=== PATIENT | female | born 1990 | race Caucasian/White ===

== ENCOUNTER 2024-04-19 02:34 | Inpatient (IN) ==
[2024-04-19] MEDS: LACTATED RINGER'S 1,000 ML IV SCH ×3 (03:25→20:17)
--- NOTE | 2024-04-19 03:32 | History & Physical Report ---
Date of Service April 19, 2024 Assessment & Plan (1) Labor presentation, breech: Plan: IUP in labor at 35 3/7 weeks in labor with breech presentation patient aware of need for emergent . procedure and risks reviewed with patient and all questions answered History of Present Illness Primary Care Provider: Deepak Antonio MD patient is a 34 yo female who presents at 35 3/7 weeks with regular contractions and breech presentation. GBS status unknown. also complicated by cholestatsis of and unknown GDM status as she did not do definitive 2hr Glucola testin. blood type O negative. Allergies Allergy/AdvReac Type Severity Reaction Status Date / Time No Known Drug Allergies Allergy Verified 04/16/24 10:54 Home Medications Medication Instructions Recorded Confirmed Type blood sugar diagnostic (OneTouch #150 ea 04/15/24 04/16/24 Rx Verio test strips) blood-glucose meter (OneTouch #1 ea 04/15/24 04/16/24 Rx Verio Reflect Meter) lancets 33 gauge (OneTouch Delica #150 ea 04/15/24 04/16/24 Rx Plus Lancet) ferrous sulfate 325 mg (65 mg 325 mg PO DAILY 04/19/24 04/19/24 History iron) tablet (iron) vit no.95-ferrous 1 tab PO 04/19/24 History fumarate 28 mg-folic acid 800 mcg tablet () Patient History Medical History (Updated 04/19/24 @ 03:29 by Bernadine Hudson MD, FACOG) History of pre-eclampsia Varicella vaccination Hypermobility syndrome Allergic rhinitis Hyponatremia Environmental and seasonal allergies ADHD Familial hyperlipidemia Surgical History History of oral surgery wisdom teeth Family History (Updated 12/03/23 @ 09:56 by Cyndi Mixon) Mother Melanoma Hypothyroidism Father Deep vein thrombosis Hyperthyroidism Family/Other Breast cancer 2nd cousin Denies family history of Ovarian cancer Colorectal cancer Social History (Updated 12/03/23 @ 09:58 by Cyndi Mixon) Smoking Status: Former smoker Tobacco Type: E-cigarettes / Vaping Second Hand Exposure: No; Do You Dip or Chew Tobacco: No; Hx Alcohol Use: No Hx Substance Use: No Preferred Language: Setswana Visual Impairment: No Limitations Hearing Ability: Normal Deaf/Hard Of Hearing Specialist Required: No Beliefs That Will Affect Care: None marital status: Single marital status details: Zane Flores (29) [phone] Current Living Situation: Family and Significant Other Current Living Situation Comment: lives with Zane, 2 children, dog, cat-kids changing litter current occupational status: employed current occupation: [employer] Other Information That Helps Us Care for You: No Feels Safe at Home: Yes Safety Concerns: Feels Safe At This Time Diet: regular caffeine: Yes Dental Care, Regularly: Yes Physical Activity Frequency: 5-6 Times per Week Seatbelt Use: always Sunscreen Use: Yes (some) Assistive Devices: Contacts Review of Systems All systems reviewed & are unremarkable except as noted in HPI & below Physical Exam Constitutional: WD/WN, vitals as above Psychiatric: A+Ox3, euthymic affect Genitourinary: OB Exam Abdomen: + breech (by exam and ultrasound) Manual OB Exam: + cervical dilation 3 cm and + cervical effacement OB Exam Monitor Tracing: + external FHT monitor used, + normal FHT variability and + variable decelerations recurrent Results & Data Vital Signs (Past 12 Hours) Vital Signs Temp Pulse Resp BP 04/19/24 02:55 98.2 F 90 18 116/71 04/19/24 02:53 90 116/71 Coding Level of Care Code 00861 INT INP/OBS CARE 1/40MIN Diagnoses Breech presentation, single or unspecified fetus O32.1XX0 Fetus number: single or unspecified fetus (1) Labor presentation, breech Fetus number: single or unspecified fetus Qualified Code(s): O32.1XX0 - Maternal care for breech presentation, not applicable or unspecified
[2024-04-19 03:48] LABS: Hematocrit (blood only) 29.5 % (37.0-47.0); Mean Corpuscular Hemoglobin 29.1 pg (25.0-34.0); Mean Corpuscular Hgb Conc 33.9 g/dL (32.0-36.0); Mean Corpuscular Volume 85.8 fL (80.0-100.0); Mean Platelet Volume 10.4 fL (9.4-12.4); Platelet Count 268 K/uL (130-400); RDW Coefficient of Variation 13.7 % (11.5-14.5); RDW Standard Deviation 42.5 fL (36.4-46.3); Red Blood Count 3.44 M/uL (4.20-5.40); White Blood Count 24.19 K/ul (4.8-10.8)
[2024-04-19] MEDS: ACETAMINOPHEN 500 MG TAB PO SCH (03:48)
[2024-04-19] MEDS: CITRIC ACID/SODIUM CITRATE 15 ML UDC ONE (03:49)
--- NOTE | 2024-04-19 04:02 | Anesthesiology Consultation ---
Date of Service April 19, 2024 Assessment & Plan Chart Review Chart Review: Acceptable Risk for Surgery Consults Requested none History Surgery Operation Date: 04/19/24 03:30 Proposed Procedures p Section in LD - Bernadine Hudson MD, FACOG Height/Weight Height: 5 ft 4 in Weight: 95.708 kg Allergies Allergy/AdvReac Type Severity Reaction Status Date / Time No Known Drug Allergies Allergy Verified 04/16/24 10:54 Medications Home Medications Medication Instructions Recorded Confirmed Last Taken blood sugar diagnostic (OneTouch #150 ea 04/15/24 04/16/24 Unknown Verio test strips) blood-glucose meter (OneTouch #1 ea 04/15/24 04/16/24 Unknown Verio Reflect Meter) lancets 33 gauge (OneTouch Delica #150 ea 04/15/24 04/16/24 Unknown Plus Lancet) ferrous sulfate 325 mg (65 mg 325 mg PO DAILY 04/19/24 04/19/24 04/18/24 iron) tablet (iron) vit no.95-ferrous 1 tab PO 04/19/24 04/18/24 fumarate 28 mg-folic acid 800 mcg tablet () Active Medications Generic Name Dose Route Start Last Admin Trade Name Freq PRN Reason Stop Dose Admin Acetaminophen 1,000 mg 04/19/24 06:00 04/19/24 03:48 Acetaminophen 500 Mg Tab PO 04/19/24 18:00 1,000 mg PREOP JASON Administration Lactated Ringer's 1,000 mls @ 999 mls/hr 04/19/24 03:30 04/19/24 03:25 Lr IV 04/19/24 04:30 999 mls/hr .Q1H1M JASON Administration NPO Date Last Intake of Fluids: 04/19/24 Date Last Intake of Solids: 04/18/24 Past Medical History Medical History (Updated 04/19/24 @ 03:29 by Bernadine Hudson MD, FACOG) History of pre-eclampsia Varicella vaccination Hypermobility syndrome Allergic rhinitis Hyponatremia Environmental and seasonal allergies ADHD Familial hyperlipidemia Past Family History Family History (Updated 12/03/23 @ 09:56 by Cyndi Mixon) Mother Melanoma Hypothyroidism Father Deep vein thrombosis Hyperthyroidism Family/Other Breast cancer 2nd cousin Denies family history of Ovarian cancer Colorectal cancer Past Surgical History Surgical History History of oral surgery wisdom teeth Social History Smoking Status: Former smoker Do You Dip or Chew Tobacco: No Hx Alcohol Use: No Hx Substance Use: No Physical Exam Vital Signs Last Vital Signs Temp 36.8 C 04/19/24 02:55 Pulse 90 04/19/24 02:55 Resp 18 04/19/24 02:55 BP 116/71 04/19/24 02:55 Testing Laboratory Results 04/19/24 03:30
[2024-04-19] MEDS: ceFAZolin 3000MG 3,000 MG/72.5 ML BAG IV SCH (04:06)
[2024-04-19] MEDS ORDERED: MoRPHine SULFATE PF 1 MG/ML 10 ML AMP/VIAL ONE (04:13)
[2024-04-19] MEDS ORDERED: OXYTOCIN 10 UNITS/ML VIAL ONE (04:42)
[2024-04-19] MEDS ORDERED: PHENYLEPHRINE HCL 25 MG/250 ML NSS IV ONE (04:42)
[2024-04-19] MEDS ORDERED: fentaNYL citrate PF 100 MCG/2 ML VIAL ONE ×3 (04:48→05:29)
[2024-04-19] MEDS ORDERED: MoRPHine SULFATE 2 MG/ML CARP IV PRN (05:05)
[2024-04-19] MEDS ORDERED: KETOROLAC 30 MG/ML VIAL IV PRN (05:05)
[2024-04-19] MEDS ORDERED: oxyCODONE HCL IR 5 MG TAB (IMMEDIATE RELEASE) PO PRN (05:05)
[2024-04-19] MEDS ORDERED: NALOXONE HCL 0.4 MG/1 ML VIAL/CARP IV PRN (05:05)
[2024-04-19] MEDS: CITRIC ACID/SODIUM CITRATE 15 ML UDC PO SCH (05:05)
[2024-04-19] MEDS ORDERED: diphenhydrAMINE 50 MG/ML VIAL IV PRN ×2 (05:05→23:05)
[2024-04-19] MEDS ORDERED: NALBUPHINE HCL INJ 10 MG/ML AMP IV PRN (05:05)
[2024-04-19] MEDS ORDERED: ONDANSETRON INJ 2 MG/ML 2 ML VIAL IV PRN ×2 (05:05→23:05)
[2024-04-19] MEDS: ACETAMINOPHEN 500 MG TAB ONE (05:05)
[2024-04-19] MEDS ORDERED: MEPERIDINE HCL 25 MG/ML CARP/VIAL IV PRN (05:05)
[2024-04-19] MEDS ORDERED: ACETAMINOPHEN 1,000 MG/100 ML VIAL IV PRN (05:05)
[2024-04-19] MEDS ORDERED: NALOXONE HCL 1 MG in SODIUM CHLORIDE 0.9% 1,000 ML IV PRN (05:05)
[2024-04-19] MEDS ORDERED: ePHEDrine sulfate 50 MG/ML AMP IV PRN (05:05)
[2024-04-19] MEDS ORDERED: HYDROmorphone INJ 0.5 MG/0.5 ML SYR IV PRN ×2 (05:05→23:05)
[2024-04-19] MEDS ORDERED: PROMETHAZINE 6.25 MG/50.25 ML BAG IV PRN (05:05)
[2024-04-19] MEDS ORDERED: NO NARCOTICS OR SEDATIVES SCH (05:15)
[2024-04-19] MEDS ORDERED: DC INTRASPINAL MORPHINE SCH (05:15)
--- NOTE | 2024-04-19 05:27 | Post Operative Brief Note ---
Immediate Post Op Note Date of Surgery April 19, 2024 Pre & Post Diagnosis Operation Date: 04/19/24 03:30 Pre-Op Diagnosis: Labor and Breech Post-Op Diagnosis: Same I identified the patient and participated in the time-out.: Yes Procedure Operation Date: 04/19/24 03:30 Actual Procedures p Section in for [facility] at 0441(Bilateral) - Bernadine Hudson MD, FACOG Surgeon Bernadine Hudson MD, FACOG Manager Of Supply Chain Lorrie Barry RN Quantitative Blood Loss (QBL) 1069 Findings Consistent with Post-Op Diagnosis incomplete breech presentation normal uterus, tubes and ovaries Specimens Specimen Description: A. Placenta - hold B. Cord Blood Drains Martins Catheter (placed in OR. Draining clear yellow urine. To be monitored by anesthesia during procedure ) Anesthesia Type Spinal Complications none Disposition Accompanied Patient To Recovery: Yes
[2024-04-19] MEDS ORDERED: SENNA 8.6 MG TAB PO PRN (05:30)
[2024-04-19] MEDS ORDERED: BENZOCAINE 20% SPRY 85 APPLN/85 GM CAN EXT PRN (05:30)
[2024-04-19] MEDS ORDERED: CALCIUM CARBONATE 500 MG CHEWABLE TAB PO PRN (05:30)
[2024-04-19] MEDS ORDERED: HYDROCORTISONE ACETATE 25 MG SUPP PR PRN (05:30)
--- NOTE | 2024-04-19 05:52 | Operative Report ---
Post Operative Report Pre & Post Diagnosis Operation Date: 04/19/24 03:30 Pre-Op Diagnosis: Labor and Breech at 35 3/7 weeks Post-Op Diagnosis: Same I identified the patient and participated in the time-out.: Yes Procedure Operation Date: 04/19/24 03:30 Actual Procedures low transverse Section in for [facility] at 0441(Bilateral) - Bernadine Issa MD, FACOG Surgeon Bernadine Hudson MD, FACOG Title Processor Lorrie Barry RN Quantitative Blood Loss (QBL) 1069 Findings Consistent with Post-Op Diagnosis Uterus is gravid and consistent with a near term in size. Bilateral ovaries and fallopian tubes were grossly normal. was in the incomplete breech presentation. Specimens Placenta to hold Drains Martins catheter to straight drainage. Clear urine at the end of the case. Anesthesia Type Spinal Complications none Disposition Accompanied Patient To Recovery: Yes Indications Patient is a 3 para 2-0-0-2 female EDC of 05/21/2025 who presents at 35- 3/7 weeks in active labor with breech presentation. Description of Procedure After the patient received adequate subarachnoid block she was prepped and draped in usual sterile fashion. Low transverse skin incision made with scalpel and carried the fascia with same scalpel. Fascial incision was then extended with Duque scissors. The edges were then grasped with Rox clamps and the underlying rectus muscle bluntly sharply docked dissected off of the overlying fascia. The rectus muscle were then bluntly divided along the midline and the underlying peritoneum also entered bluntly. Bladder was taken down off the anterior surface of the uterus and placed behind the bladder blade. The uterus was entered with a scalpel and the incision extended transversely by stretching the incision incision both in a cephalad and caudad direction. The female was delivered from the incomplete breech presentation with the assistance of elevation vaginally. Then with moderate fundal pressure, the shoulders were delivered followed by the head. She was vigorous crying and moving all 4 limbs. Cord was clamped and cut and the infant was handed off to Dr. Willis and the nursery crew in attendance. After cord blood was obtained, the placenta was manually removed. Uterus was then exteriorized and covered with a clean lap sponge. The uterine cavity is then explored and was found to be free of any placental tissue or membranes. There is a slight extension into the lower uterine segment on the left. After identifying and grasping the lower edge of the uterine incision with T clamps, the uterus was closed in 2 layers in a running locking imbricating fashion. Hemostasis was noted to be excellent. The posterior cul-de-sac was suctioned for a small amount of blood. Uterine incision was examined once more and continue to have excellent hemostasis. It was then gently placed back inside the abdominal cavity. The gutters were cleared of some clot and fluid. Single bleeding site on the upper edge of the uterine incision on the midline was cauterized with the Bovie. This point hemostasis was noted to be excellent. The rectus muscles were then brought together on the midline with individual stitches of 0 Monocryl. After irrigating the subcutaneous layer, the skin edges were reapproximated in a subcuticular fashion with 4-0 Vicryl. Patient tolerated the procedure well was stable back in labor delivery for recovery. I attest to the content of the Intraoperative Record and any orders documented therein. Any exceptions are noted below. OB Procedure Charges 85385
[2024-04-19] MEDS ORDERED: AZITHROMYCIN 500 MG/255 ML BAG IV SCH (06:00)
[2024-04-19] MEDS: OXYTOCIN 20 UNITS/LR 1,002 ML IV SCH (06:09)
[2024-04-19] MEDS: KETOROLAC 30 MG/ML VIAL IV SCH (06:11)
--- NOTE | 2024-04-19 06:34 | Anesthesiology Progress Note ---
Date of Service April 19, 2024 Anesthesia Post Procedure Vital Signs Vital Signs: Temp Pulse Resp BP Pulse Ox 04/19/24 06:32 75 92 04/19/24 06:30 79 105/65 04/19/24 06:29 82 98 04/19/24 06:25 18 04/19/24 06:25 77 18 107/70 04/19/24 06:24 82 98 04/19/24 06:19 77 107/70 97 04/19/24 06:16 79 103/66 04/19/24 06:15 82 18 93/49 L 04/19/24 06:14 78 97 04/19/24 06:10 77 116/59 L 04/19/24 06:09 78 97 04/19/24 06:05 86 18 112/56 L 04/19/24 06:04 82 96 04/19/24 06:00 80 104/61 04/19/24 05:59 83 97 04/19/24 05:55 80 18 111/59 L 04/19/24 05:54 82 97 04/19/24 05:50 89 126/60 04/19/24 05:49 94 H 98 04/19/24 05:45 90 18 125/58 L 04/19/24 05:44 97 H 98 04/19/24 05:43 87 119/54 L 04/19/24 05:39 96 H 99 04/19/24 05:36 84 93 04/19/24 05:34 36.6 C 86 18 116/57 L 94 04/19/24 02:55 36.8 C 90 18 116/71 04/19/24 02:53 90 116/71 Transfer of Care Handoff Completed per policy Notes Mental Status: alert / awake / arousable and participated in evaluation Nausea / Vomiting: adequately controlled Pain: adequately controlled Airway Patency, RR, SpO2: stable & adequate BP & HR: stable & adequate Hydration State: stable & adequate Neuraxial Anesthesia: was administered and sensory block is resolving Anesthetic Complications: no major complications apparent and Pt Satisfied with anesthetic care
[2024-04-19] MEDS: SIMETHICONE 80 MG CHEW PO SCH (07:53)
[2024-04-19] MEDS: DOCUSATE SODIUM 100 MG CAP PO SCH (07:55)
[2024-04-19] MEDS: FERROUS SULFATE 325 MG TAB PO SCH (07:55)
[2024-04-19] MEDS: PRENATAL VITAMIN 1 TAB PO SCH (07:55)
[2024-04-19] MEDS: ACETAMINOPHEN 325 MG TAB PO SCH (10:19)
[2024-04-19] MEDS: DIPHTHER/TETAN/PERTUS Vaccine (Tdap, Adol/Adult) 0.5mL IM ONE (19:28)
[2024-04-19] MEDS: MoRPHine SULFATE PF 1 MG/ML 10 ML AMP/VIAL INT SPINAL ONE (19:28)
[2024-04-19] MEDS: SODIUM CHLORIDE 0.9% 1,000 ML IV SCH (19:29)
[2024-04-19] MEDS: NALOXONE HCL 0.08 MG in SYRINGE 1.8 ML IV PRN (20:51)
[2024-04-19] MEDS ORDERED: diphenhydrAMINE Capsule 25 MG CAP PO PRN (23:05)
[2024-04-19] MEDS ORDERED: PROMETHAZINE 12.5 MG/50.5 ML BAG IV PRN (23:05)
[2024-04-20] MEDS ORDERED: KETOROLAC 30 MG/ML VIAL IV PRN (06:00)
[2024-04-20] MEDS: IBUPROFEN 600 MG TAB PO SCH (06:19)
--- NOTE | 2024-04-20 07:02 | Obstetrical Progress Note ---
Date of Service April 20, 2024 Assessment & Plan (1) state: Plan: 34yo ppd 1 s/d emergent for breech presentation Feeling well today, VSS with BP slightly low Continue care Encourage ambulation and breast/bottle feeds as tolerated D/c in the next few days Followup with Dr. Hudson in 6wks Admission and Anticipated Discharge Date Admission Date: April 19, 2024 Supervising Physician Co-Signing Physician Notes Resident Physician Supervision Note: I interviewed and examined the patient. Discussed with Dr. Gurrola and agree with findings and plan as documented in the note. Any exceptions or clarifications are listed here: POD1 s/p pLTCS, doing well. VSS, exam benign, incision c/d/i. Hgb 7.2 noted, asymptomatic so will use iron, pt aware to let us know if symptomatic as transfusion can be discussed Documented By: Patience Daniel MD Subjective 34yo ppd 1 s/p emergent for breech presentation: Ambulation: ambulating normally Voiding: urinating, no BM yet Passing Gas: no Diet Tolerance: regular Lochia: Small Feeding Type: breast and bottle, no concerns at this time doing well this morning- having soreness but otherwise denies any symptoms of lightheadedness, dizziness, palpitations Physical Exam Physical Exam: Constitutional: WD/WN, vitals as above Psychiatric: A&Ox3, euthymic GI/abd: low-transverse incision scar healing well with mild surrounding ecchymosis, no erythema or swelling, no significant tenderness to palpation - +BS, fundus firm 1fw+ umbilicus Ext: no LE edema, calves nontender to palpation, wiggles toes Results & Data Vital Signs (Past 12 Hours) Vital Signs Temp Pulse Resp BP Pulse Ox O2 Del Method 04/20/24 03:45 36.6 C 82 16 96/59 L 97 Room Air 04/19/24 21:00 18 98 04/19/24 19:40 18 99 04/19/24 19:40 36.5 C 82 18 107/68 99 Room Air Resident Activity Tracking Resident Involvement: Resident Care Provided Care Provided: OB Delivery
[2024-04-20 07:35] LABS: Hematocrit (blood only) 20.9 % (37.0-47.0); Hemoglobin 7.2 g/dl (12.0-16.0); Mean Corpuscular Hemoglobin 29.5 pg (25.0-34.0); Mean Corpuscular Hgb Conc 34.4 g/dL (32.0-36.0); Mean Corpuscular Volume 85.7 fL (80.0-100.0); Mean Platelet Volume 10.5 fL (9.4-12.4); Platelet Count 283 K/uL (130-400); RDW Coefficient of Variation 13.7 % (11.5-14.5); RDW Standard Deviation 42.8 fL (36.4-46.3); Red Blood Count 2.44 M/uL (4.20-5.40); White Blood Count 22.75 K/ul (4.8-10.8)
[2024-04-20 07:48] LABS: Basophils # (auto) 0.05 K/uL (0.00-0.20); Basophils % (auto) 0.2 %; Eosinophils # (auto) 0.21 K/uL (0.00-0.50); Eosinophils % (auto) 0.9 %; Immature Granulocytes # (auto) 0.21 K/uL (0.01-0.20); Immature Granulocytes % (auto) 0.9 %; Lymphocytes # (auto) 1.74 K/uL (1.20-3.40); Lymphocytes % (auto) 7.6 %; Monocytes # (auto) 0.81 K/uL (0.11-0.59); Monocytes % (auto) 3.6 %; Neutrophils # (auto) 19.73 K/uL (1.40-6.50); Neutrophils % (auto) 86.8 %
[2024-04-20] MEDS: MAGNESIUM HYDROXIDE SUSP 30 ML UDC PO PRN (08:46)
[2024-04-20] MEDS: oxyCODONE HCL IR 5 MG TAB (IMMEDIATE RELEASE) PO PRN (18:34)
[2024-04-20] MEDS: bisacodyL 5 MG TABEC PO SCH (21:03)
[2024-04-21 00:53] VITALS: O2SAT 97
[2024-04-21] MEDS ORDERED: bisacodyL 10 MG SUPP PR PRN (05:30)
[2024-04-21] MEDS: IBUPROFEN 600 MG TAB PO PRN (06:10)
[2024-04-21 06:40] LABS: Hematocrit (blood only) 21.6 % (37.0-47.0); Hemoglobin 7.1 g/dl (12.0-16.0)
--- NOTE | 2024-04-21 07:19 | Obstetrical Progress Note ---
Date of Service April 21, 2024 Assessment & Plan (1) state: All questions were answered incision was inspected and found to be clean dry and intact extremity exam was negative for tenderness patient has no significant depressive symptoms cont current care likely tomorrow dc Subjective Ambulation: ambulating normally Voiding: no voiding problems Passing Gas:: Yes Diet Tolerance:: regular diet Lochia:: Small Feeding Type:: bottle feeding Physical Exam Constitutional WD/WN, vitals as above well developed and well nourished Respiratory normal respiratory effort, lungs clear to auscultation normal respiratory effort Cardiovascular RRR, no murmur, no edema Gastrointestinal (Abdomen) normal bowel sounds, soft, nontender, no hepatosplenomegaly Results & Data Vital Signs (Past 12 Hours) Vital Signs Temp Pulse Resp BP Pulse Ox O2 Del Method 04/20/24 23:10 98.2 F 79 16 102/71 97 Room Air 04/20/24 21:00 98.2 F 74 18 113/71 98 Room Air
[2024-04-21 08:34] VITALS: RESP 18
[2024-04-21 11:25] VITALS: BP 130/81; PULSE 91; TEMP 97.9
[2024-04-21] MEDS: ACETAMINOPHEN 325 MG TAB PO PRN (12:04)
--- NOTE | 2024-04-22 16:50 | Discharge Summary ---
Date of Service April 22, 2024 Admission HPI Per Admitting Provider patient is a 34 yo female who presents at 35 3/7 weeks with regular contractions and breech presentation. GBS status unknown. also complicated by cholestatsis of and unknown GDM status as she did not do definitive 2hr Glucola testin. blood type O negative. Admission Exam (Per Admitting) Constitutional WD/WN, vitals as above Psychiatric A+Ox3, euthymic affect Genitourinary OB Exam Abdomen: + breech (by exam and ultrasound) Manual OB Exam: + cervical dilation + 3 cm and + cervical effacement OB Exam Monitor Tracing: + external FHT monitor used, + normal FHT variability and + variable decelerations + recurrent Discharge Data Consultations 04/19/24 03:21 Consult Anesthesiology Stat Procedures Performed Operation Date: 04/19/24 03:30 Actual Procedures p Section in LD for [facility] at 0441(Bilateral) - Bernadine Hudson MD, [facility] Hospital Course (1) state: All questions were answered incision was inspected and found to be clean dry and intact extremity exam was negative for tenderness patient has no significant depressive symptoms cont current care likely tomorrow dc Discharge Plan Discharge Items Patient Disposition: Home - Self-Care Reason For Visit: LABOR CHECK Discharge Diagnosis: cs Activity: Per Instructions section Non-emergency contact: Ship'S Engineer Call non-emergency contact if: your pain is not controlled Follow-up/Referrals: Deepak Antonio MD [Primary Care Provider] - Diet: Regular OB Addtl Attending Provider Instructions: ACTIVITY RECOMMENDATIONS: * Gradual return to full activity over the next 2-3 weeks. * No lifting - nothing heavier than baby over the next 2-3 weeks. * Do not engage in vigorous exercise, sexual activity or sports until cleared by your physician. * Do not drive or operate any motorized equipment until cleared by your physician. * You may shower/bathe daily. MEDICATIONS: For discomfort or pain, you may use Acetaminophen (Tylenol), Ibuprofen (Advil), or Naproxen (Aleve) following the package directions. For constipation you may use Colace following the package directions. BREAST CARE: If you are not breast feeding: * Wear a supportive bra 24 hours a day for one to two weeks. * Avoid stimulating your breasts and nipples as much as possible during the first few weeks after delivery. * When taking a shower, have the warm water hit your back, not breasts. * When your breasts feel full, apply ice packs. Usually three to four times a day helps ease the discomfort. * Take a mild pain medication (Tylenol / Motrin) when you are uncomfortable. If breast feeding: * Use breast milk to lubricate nipples. Lansinoh cream may be used for sore nipples. You do not need to remove cream prior to breast feeding. If using a different brand of cream, check the label for directions regarding removal of cream prior to nursing. * Wear a supportive bra. * If having problems with breasts or breast feeding, call a program evaluation consultant or your health care provider. SPECIAL CARE INSTRUCTIONS: When you are discharged from the hospital, it is important for you to follow the instructions listed below: * During the first week at home, you should be able to care for yourself and your baby. In addition, the usual light household activities are encouraged. * Limit your activities to the way you feel. Do not try to clean the house or move furniture. Be sensible. * If you actively engage in sports and have done so up until the time of your delivery, you may resume these activities as soon as you feel able. This may take up to one month or even longer. Use good judgment. * Continue to take your vitamins for at least six weeks after the of your baby. * Your diet need not be limited unless you were on a special diet before your delivery. Breast-feeding mothers need around 2500 calories per day and at least 64-80 ounces of fluid per day (8 to 10 glasses). * You should eat foods from the four major food groups. Crash diets or fad diets are to be avoided. Eating lean meats, fresh fruits and vegetables, low-fat dairy products, high fiber foods and a regular exercise program, will help you get back to your pre- weight without putting your health at risk. * Constipation is sometimes a problem after delivery. Take a mild laxative as needed. If breast feeding, Milk of Magnesia is acceptable to use. You may use a suppository or Fleets enema. * A daily shower or tub bath is suggested. Wash incision daily with warm soapy water and pat dry. It doesn't need to be covered unless drainage is present. * A bloody vaginal discharge will usually continue until around four weeks . A small amount of bleeding may continue for as long as six weeks. Vaginal discharge changes from the bright red bleeding after delivery to pink then brownish and finally yellowish-pink before becoming white and disappearing. * Bleeding may increase with activity. Your first period may come in 4-8 weeks. If you are breast feeding, your period may be delayed even longer. * Farina (sex) can begin whenever both you and your partner feel comfortable and do not have any form of genital infection. It is recommended that you wait at least six weeks for internal and external healing to occur. If you have questions, please talk to your health care practitioner. A condom should be used to prevent infection and . * Foreplay, gentle intercourse and lubrication is very important the first several times to prevent pain. A water-based lubricant such as K-Y jelly or Astroglide may be used. * If you have RH negative blood and your baby is RH positive, you will receive RHOGAM by injection prior to discharge. The nurse will give you a card to keep with you that has the date and place that you received RHOGAM after delivery. * During your care, you had a Rubella screen done to check for the presence of rubella antibodies in your blood. If your test was negative, you will receive a Rubella vaccine prior to discharge. This vaccine may cause a fever, soreness at the injection site and flu-like symptoms. If these symptoms persist, notify your health care practitioner. is not advised for one month after a Rubella vaccine. * Verbalizes understanding of car seat law as reviewed with patient nursing. * Car Seat hand-out given and reviewed with patient by nursing. * Shaken baby information reviewed with patient by nursing. Call you doctor if: * Heavy bleeding (saturating several pads an hour) or passing clots the size of your fist. * A fever >101 degrees F (38.3 degrees C) on two occasions four hours apart and/or chills. * Unusual pain in the pelvic or vaginal areas. * Call the doctor for any increased redness, drainage or swelling around the incision and any pain unrelieved by prescribed pain medication. * "Baby Blues" lasting longer than two weeks. If you have any questions or concerns, call your health care practitioner at . FOLLOW UP VISIT: * Please call the office at to schedule a 6 week examination. It is important you keep this appointment. It is important for you to make arrangements for either yearly or twice yearly check-ups thereafter. Pending Studies at Discharge: No Stand-Alone Forms: [facility] C[facility] Medications and DC Order Prescriptions: New ibuprofen 600 mg tablet 600 mg PO Q8H PRN (Reason: pain) Qty: 20 0RF oxycodone 5 mg tablet 5 mg PO Q6HWA PRN (Reason: pain) Qty: 20 0RF Continued ferrous sulfate [iron] 325 mg (65 mg iron) Tablet 325 mg PO DAILY PNV cmb#95-ferrous fumarate-FA [] 28 mg iron- 800 mcg Tablet 1 tab PO Discontinued (DME) OneTouch Verio test strips Strip See Rx Instructions .MEDSUPPLY Qty: 150 0RF Rx Instructions: check blood sugars 4 times a day (DME) blood-glucose meter [OneTouch Verio Reflect Meter] Misc See Rx Instructions miscellaneous .MEDSUPPLY Qty: 1 0RF Rx Instructions: As directed (DME) lancets [OneTouch Delica Plus Lancet] 33 gauge misc See Rx Instructions .MEDSUPPLY Qty: 150 0RF Rx Instructions: As directed check blood sugars 4 times a day Discharge Orders: Discharge Order (Routine); Ordered 04/21/24 Ordered By: Anjali Tristan/Other Patient Handouts: DVT in , Understanding Depression, Section Dc Admission Data Admit Date/Time: 04/19/24 03:21 Attending Provider: Bernadine Hudson Admit Provider: Bernadine Hudson Primary Care Provider: Deepak Antonio Other Providers: Patience Daniel; Gavino Fofana V.; Anjali Olivares Other Interventions: Discharge Summary Assessment (RN) Last Done: 04/21/24 12:20 Coding Level of Care Code 69304 IN/OBS DISCH 30 MIN/LESS Diagnoses state Z39.2
== END 2024-04-21 12:45 | disposition home or self-care (01) | DRG 788 ==
LOC: OPB 02:34 → 4S1 02:42 → 4E2 08:51
DX: Z87.891 Personal history of nicotine dependence; Z37.0 Single live birth; Z3A.35 35 weeks gestation of pregnancy; O32.8XX0 Maternal care for other malpresentation of fetus, not applicable or unspecified